=== PATIENT | female | born 1940 | race African-American/Black ===

== ENCOUNTER 2021-11-22 10:39 | Emergency (ER) | payer OTHER, MEDICAID ==
[~2021-11-22] VITALS: Ht 160 cm; Wt 55.0 kg
[~2021-11-22 10:39] MED LIST: ALBU90AE INH; AMBIEN; APIX5TAB MT; ASPI-1406 MT; ATORVASTATIN; BISA-81 MT; CALC1CAP22 MT; CARAFATE; CYAN500T47 MT; FLUT1AER IH; FURO40TA5 MT; LIPITOR; MAGN100T6 MT; MULT-624 MT; PROTONIX; QUET200T PO
[2021-11-22 10:42] VITALS: BP 119/98
[2021-11-22] MEDS ORDERED: ACETAMINOPHEN WITH CODEINE 300/30MG TABLET PO ONE (12:30)
== END 2021-11-22 14:00 | disposition home or self-care (01) ==
LOC: ER 10:39
DX: G89.29 Other chronic pain (principal)
CPT/HCPCS: 99283

== ENCOUNTER 2022-02-16 13:53 | Emergency (ER) | payer OTHER, MEDICAID ==
[~2022-02-16] VITALS: Ht 152.4 cm; Wt 60.0 kg
[2022-02-16] MEDS ORDERED: IBUPROFEN 600MG TABLET PO ONE (19:00)
[2022-02-16] MEDS ORDERED: OXYC-100 MT (19:36)
[2022-02-16] MEDS ORDERED: DOCU-138 MT (19:36)
[2022-02-16] MEDS ORDERED: OXYCODONE HCL/ACETAMINOPHEN 5/325MG TABLET PO ONE (19:45)
[2022-02-16 20:56] VITALS: BP 128/78
== END 2022-02-16 20:50 | disposition home or self-care (01) ==
LOC: ER 13:53
DX: S22.089A Unspecified fracture of T11-T12 vertebra, initial encounter for closed fracture (principal); S32.029A Unspecified fracture of second lumbar vertebra, initial encounter for closed fracture; W18.30XA Fall on same level, unspecified, initial encounter; Y93.89 Activity, other specified; Y92.89 Other specified places as the place of occurrence of the external cause; Y99.8 Other external cause status
CPT/HCPCS: 72100; 72170; 99284

== ENCOUNTER 2022-03-03 14:46 | Inpatient (IN) | payer OTHER, MEDICAID ==
[~2022-03-03] VITALS: Ht 165.1 cm; Wt 55.0 kg
[~2022-03-03 14:46] MED LIST changes: +DOCU-138 MT; +OXYC-100 MT
[2022-03-03 19:12] LABS: BASOPHILS % 0.9 % (0.0-2.0); EOSINOPHILS % 0.6 % (0.0-5.0); HEMATOCRIT. 33.5 % (36.0-48.0); HEMOGLOBIN. 11.2 g/dL (12.0-16.0); LYMPHOCYTES % 28.6 % (20.0-50.0); MEAN CORPUSCULAR HEMOGLOBIN 32.1 pg (28.0-32.0); MEAN CORPUSCULAR VOLUME 96.2 fL (81.0-99.0); MEAN PLATELET VOLUME 7.4 fl (7.4-10.4); MONOCYTES % 5.6 % (2.0-8.0); NEUTROPHILS % 64.3 % (40.0-76.0); PLATELET 390 x1000/uL (130-400); RED BLOOD CELL COUNT 3.48 mill/uL (4.2-5.4); RED CELL DISTRIBUTION WIDTH 15.1 % (11.6-14.6)
[2022-03-03 19:24] LABS: CHLORIDE 110 mEq/L (98-107)
[2022-03-03] MEDS ORDERED: ACETAMINOPHEN 325MG TABLET PO ONE (20:15)
[2022-03-03] MEDS ORDERED: HYDROCODONE/ACETAMINOPHEN 5/325MG TABLET PO ONE (22:15)
[2022-03-03 22:38] LABS: CLARITY URINE TURBID (CLEAR); COLOR URINE YELLOW (YELLOW); KETONES URINE NEGATIVE (NEGATIVE); LEUKOCYTE ESTERASE URINE TRACE (NEGATIVE); NITRITE URINE NEGATIVE (NEGATIVE); OCCULT BLOOD URINE NEGATIVE (NEGATIVE); PH URINE 6.5 (4.5-8.0); PROTEIN URINE 1+ (NEGATIVE); SPECIFIC GRAVITY URINE 1.019 (1.005-1.030)
[2022-03-04] MEDS ORDERED: CEFTRIAXONE 1 G PREMIX 50 ML IV ONE (01:15)
[2022-03-04] MEDS: HYDROCODONE/ACETAMINOPHEN 5/325MG TABLET PO PRN ×3 (04:07→21:35)
[2022-03-04 08:00] VITALS: BP 148/78
[2022-03-04 08:34] VITALS: BP 138/78
[2022-03-04] MEDS: AMLODIPINE 10MG TABLET PO SCH (08:53)
[2022-03-04] MEDS ORDERED: CEFTRIAXONE 1 G PREMIX 50 ML IV SCH (09:00)
[2022-03-04 12:26] VITALS: BP 124/76
[2022-03-04] MEDS ORDERED: IOHEXOL-300 100 ML BOTTLE ONE (14:42)
[2022-03-04 16:00] VITALS: BP 131/79
[2022-03-04 17:27] LABS: *AMPHETAMINES SCREEN URINE NEGATIVE (NEGATIVE); *BARBITURATES SCREEN URINE NEGATIVE (NEGATIVE); *BENZODIAZEPINES SCREEN URINE NEGATIVE (NEGATIVE); *COCAINE SCREEN URINE PRESUMTIVE POSITIVE (NEGATIVE); CANNABINOID URINE SCREEN NEGATIVE (NEGATIVE); METHADONE URINE SCREEN NEGATIVE (NEGATIVE); OPIATES URINE SCREEN PRESUMTIVE POSITIVE (NEGATIVE); PHENCYCLIDINE URINE SCREEN NEGATIVE (NEGATIVE)
[2022-03-04] MEDS ORDERED: NALOXONE HCL 0.4MG/ML VIAL IV PRN (18:30)
[2022-03-04 19:56] VITALS: BP 133/70
[2022-03-05] VITALS: BP 140/72
[2022-03-05] MEDS: CEFTRIAXONE 1,000 MG in DEXTROSE 5% WATER 50 ML IV SCH (02:43)
[2022-03-05 04:00] VITALS: BP 144/72
[2022-03-05 08:00] VITALS: BP 146/80
[2022-03-05] MEDS: AMLODIPINE 10MG TABLET PO SCH (08:49)
[2022-03-05 11:56] LABS: PROTHROMBIN TIME 10.9 sec (9.6-11.0)
[2022-03-05 12:00] VITALS: BP 116/75
[2022-03-05] MEDS: HYDROCODONE/ACETAMINOPHEN 5/325MG TABLET PO PRN ×3 (12:11→22:15)
[2022-03-05 16:00] VITALS: BP 126/69
[2022-03-05 20:00] VITALS: BP 114/66
[2022-03-05] MEDS ORDERED: MORPHINE SULFATE 15MG TABLET SR PO PRN (21:00)
[2022-03-06] VITALS: BP 148/73
[2022-03-06] MEDS: CEFTRIAXONE 1,000 MG in DEXTROSE 5% WATER 50 ML IV SCH (01:30)
[2022-03-06 04:00] VITALS: BP 131/74
[2022-03-06] MEDS: MORPHINE SULFATE 2 MG/ML CPJ (NOT FOR IM USE) IV PRN ×4 (06:18→22:12)
[2022-03-06 08:00] VITALS: BP 136/78
[2022-03-06] MEDS: AMLODIPINE 10MG TABLET PO SCH (09:45)
[2022-03-06 12:00] VITALS: BP 136/74
[2022-03-06 13:03] LABS: BASOPHILS % 0.6 % (0.0-2.0); HEMATOCRIT. 31.9 % (36.0-48.0); HEMOGLOBIN. 10.8 g/dL (12.0-16.0); LYMPHOCYTES % 35.2 % (20.0-50.0); MEAN CORPUSCULAR HEMOGLOBIN 32.3 pg (28.0-32.0); MEAN CORPUSCULAR VOLUME 95.8 fL (81.0-99.0); MEAN PLATELET VOLUME 8.2 fl (7.4-10.4); NEUTROPHILS % 57.2 % (40.0-76.0); PLATELET 311 x1000/uL (130-400); RED BLOOD CELL COUNT 3.33 mill/uL (4.2-5.4); RED CELL DISTRIBUTION WIDTH 14.7 % (11.6-14.6)
[2022-03-06 13:17] LABS: CHLORIDE 104 mEq/L (98-107)
[2022-03-06 16:00] VITALS: BP 126/79
[2022-03-06 20:00] VITALS: BP 140/83
[2022-03-06] MEDS: ZOLPIDEM TARTRATE 5MG TABLET PO PRN (22:11)
[2022-03-07] VITALS (60 sets, daily range): BP systolic 94–149; BP diastolic 48–86
[2022-03-07] MEDS: CEFTRIAXONE 1,000 MG in DEXTROSE 5% WATER 50 ML IV SCH (01:32)
[2022-03-07] MEDS: MORPHINE SULFATE 2 MG/ML CPJ (NOT FOR IM USE) IV PRN (05:40)
[2022-03-07] MEDS ORDERED: THROMBIN (BOVINE) 5000 UNITS/VIAL TOP ONE (06:09)
[2022-03-07] MEDS ORDERED: GENTAMICIN SULF 40MG/ML 2ML VIAL ONE (06:09)
[2022-03-07] MEDS ORDERED: BACITRACIN 15GM TUBE TOP ONE (06:09)
[2022-03-07] MEDS ORDERED: LIDOCAINE HCL 1%/EPI 1:200,000 30 ML VIAL ONE (06:10)
[2022-03-07 06:35] LABS: HEMATOCRIT 30.3 % (36.0-48.0); HEMOGLOBIN 10.5 g/dL (12.0-16.0); MEAN CORPUSCULAR HEMOGLOBIN 32.9 pg (28.0-32.0); MEAN CORPUSCULAR VOLUME 94.8 fL (81.0-99.0); PLATELET 318 x1000/uL (130-400); RED CELL DISTRIBUTION WIDTH 14.6 % (11.6-14.6)
[2022-03-07] MEDS ORDERED: PROPOFOL 200MG/20ML VIAL IV ONE (07:02)
[2022-03-07] MEDS ORDERED: FENTANYL CITRATE/PF 50MCG/ML 2ML VIAL ONE (07:02)
[2022-03-07] MEDS ORDERED: MIDAZOLAM HCL 2 MG/2 ML VIAL ONE (07:02)
[2022-03-07] MEDS ORDERED: ROCURONIUM BROMIDE 10MG/ML VIAL 5ML IV ONE ×2 (07:02→08:21)
[2022-03-07 07:14] LABS: CHLORIDE 105 mEq/L (98-107)
[2022-03-07] MEDS ORDERED: DEXAMETHASONE 4MG/ML 1ML VIAL ONE (08:22)
[2022-03-07] MEDS ORDERED: HYDRALAZINE 20MG/ML VIAL ONE (08:22)
[2022-03-07] MEDS ORDERED: CEFAZOLIN SODIUM 1000MG/VIAL ONE (08:22)
[2022-03-07] MEDS ORDERED: METOCLOPRAMIDE HCL 10MG/2ML VIAL ONE (08:22)
[2022-03-07] MEDS ORDERED: ONDANSETRON HCL 4MG/2ML INJ ONE (08:22)
[2022-03-07] MEDS ORDERED: NEOSTIGMINE METHYLSULFATE 1MG/ML 10 ML VIAL ONE (08:43)
[2022-03-07] MEDS ORDERED: GLYCOPYRROLATE 0.2 MG/ML 2ML VIAL ONE (08:44)
[2022-03-07] MEDS ORDERED: EPHEDRINE SULFATE 50MG/ML VIAL ONE (08:57)
[2022-03-07] MEDS ORDERED: SODIUM CHLORIDE 0.9% 10ML VIAL ONE (08:58)
[2022-03-07] MEDS ORDERED: PHENYLEPHRINE HCL 10 MG/ML 1ML (IV VIAL) IV ONE (08:58)
[2022-03-07] MEDS ORDERED: HYDROCODONE/ACETAMINOPHEN 5/325MG TABLET PO PRN (09:00)
[2022-03-07] MEDS: AMLODIPINE 10MG TABLET PO SCH (09:00)
[2022-03-07] MEDS ORDERED: NICARDIPINE 100 MG in SODIUM CHLORIDE 0.9% 60 ML IV PRN (09:00)
[2022-03-07] MEDS ORDERED: KETOROLAC 30MG/ML VIAL ONE (09:02)
[2022-03-07] MEDS ORDERED: LABETALOL HCL 5MG/ML VIAL 20ML IV ONE (09:14)
[2022-03-07] MEDS: DEXT 5%/LACTATED RINGERS 1,000 ML IV SCH ×2 (10:36→17:40)
[2022-03-07] MEDS: MORPHINE SULFATE 4 MG/ML CPJ (NOT FOR IM USE) IV PRN ×3 (13:08→19:56)
[2022-03-07] MEDS ORDERED: CEFAZOLIN SODIUM 1000MG/VIAL IV SCH (14:00)
[2022-03-07] MEDS: CEFAZOLIN 1000MG PREMIX 50 ML IV SCH ×2 (14:21→23:00)
[2022-03-07] MEDS: ZOLPIDEM TARTRATE 5MG TABLET PO PRN (19:55)
[2022-03-08] VITALS (67 sets, daily range): BP systolic 52–141; BP diastolic 15–85
[2022-03-08] MEDS: MORPHINE SULFATE 4 MG/ML CPJ (NOT FOR IM USE) IV PRN ×5 (00:57→17:09)
[2022-03-08] MEDS: DEXT 5%/LACTATED RINGERS 1,000 ML IV SCH ×2 (00:57→07:39)
[2022-03-08] MEDS: CEFTRIAXONE 1,000 MG in DEXTROSE 5% WATER 50 ML IV SCH (01:00)
[2022-03-08] MEDS: CEFAZOLIN 1000MG PREMIX 50 ML IV SCH ×3 (05:46→22:40)
[2022-03-08] MEDS: AMLODIPINE 10MG TABLET PO SCH (08:04)
[2022-03-08] MEDS ORDERED: GADOTERATE MEGLUMINE 5 MMOL/10 ML VIAL IV ONE (10:07)
[2022-03-08 13:11] LABS: KAPPA/LAMBDA RATIO 42.35 (0.26-1.65); LAMBDA LT CHAINS FREE SERUM 7.9 mg/L (5.7-26.3)
[2022-03-08 13:11] LABS: A/G RATIO 0.6 (0.7-1.7); ALBUMIN 3.3 g/dL (2.9-4.4); ALPHA-1-GLOBULIN 0.3 g/dL (0.0-0.4); ALPHA-2-GLOBULIN 0.8 g/dL (0.4-1.0); BETA GLOBULIN 0.7 g/dL (0.7-1.3); GAMMA GLOBULINS 3.3 g/dL (0.4-1.8); GLOBULIN TOTAL 5.2 g/dL (2.2-3.9); M-SPIKE 2.9 g/dL (Not Observed); TOTAL PROTEIN SERUM 8.5 g/dL (6.0-8.5)
[2022-03-08] MEDS: ZOLPIDEM TARTRATE 5MG TABLET PO PRN (21:10)
[2022-03-09] VITALS: BP 137/88
[2022-03-09] MEDS: CEFTRIAXONE 1,000 MG in DEXTROSE 5% WATER 50 ML IV SCH (01:25)
[2022-03-09] MEDS: MORPHINE SULFATE 4 MG/ML CPJ (NOT FOR IM USE) IV PRN ×3 (01:59→17:15)
[2022-03-09 04:00] VITALS: BP 130/77
[2022-03-09] MEDS: CEFAZOLIN 1000MG PREMIX 50 ML IV SCH (06:35)
[2022-03-09 08:00] VITALS: BP 119/71
[2022-03-09] MEDS: AMLODIPINE 10MG TABLET PO SCH (09:15)
[2022-03-09 12:00] VITALS: BP 122/74
[2022-03-09 16:00] VITALS: BP 125/70
[2022-03-09 17:12] LABS: BASOPHILS % 0.4 % (0.0-2.0); EOSINOPHILS % 0.4 % (0.0-5.0); HEMATOCRIT. 24.6 % (36.0-48.0); HEMOGLOBIN. 8.4 g/dL (12.0-16.0); LYMPHOCYTES % 25.2 % (20.0-50.0); MEAN CORPUSCULAR HEMOGLOBIN 33.1 pg (28.0-32.0); MEAN CORPUSCULAR VOLUME 97.1 fL (81.0-99.0); MONOCYTES % 5.8 % (2.0-8.0); NEUTROPHILS % 68.2 % (40.0-76.0); PLATELET 246 x1000/uL (130-400); RED BLOOD CELL COUNT 2.53 mill/uL (4.2-5.4); RED CELL DISTRIBUTION WIDTH 14.9 % (11.6-14.6)
[2022-03-09 17:20] LABS: CHLORIDE 101 mEq/L (98-107)
[2022-03-09 19:55] VITALS: BP 139/52
[2022-03-10] VITALS (7 sets, daily range): BP systolic 91–116; BP diastolic 47–68
[2022-03-10] MEDS: MORPHINE SULFATE 4 MG/ML CPJ (NOT FOR IM USE) IV PRN ×3 (02:06→20:33)
[2022-03-10] MEDS: AMLODIPINE 10MG TABLET PO SCH (08:20)
[2022-03-10] MEDS ORDERED: NALOXONE HCL 0.4MG/ML VIAL IV PRN (13:00)
[2022-03-10 13:10] LABS: HEMATOCRIT 23.8 % (36.0-48.0); HEMOGLOBIN 8.1 g/dL (12.0-16.0)
[2022-03-10] MEDS: ZOLPIDEM TARTRATE 5MG TABLET PO PRN (21:48)
[2022-03-11 04:00] VITALS: BP 98/64
[2022-03-11] MEDS: MORPHINE SULFATE 4 MG/ML CPJ (NOT FOR IM USE) IV PRN ×2 (07:23→12:27)
[2022-03-11 08:00] VITALS: BP 97/83
[2022-03-11] MEDS ORDERED: LACTULOSE 20G/30ML UDC PO NR (11:45)
[2022-03-11 12:00] VITALS: BP 122/71
[2022-03-11 17:56] VITALS: BP 122/71
== END 2022-03-11 19:35 | disposition home health service (06) | DRG 28 ==
LOC: ER 14:46 → 6EST 03-04 01:12 → MICUNO 03-07 10:09 → 4WST 03-08 16:58
PROVIDERS: ADMIT Internal Medicine; ATTEND Internal Medicine
PROC: 0SG1071 Fusion of 2 or more Lumbar Vertebral Joints with Autologous Tissue Substitute, Posterior Approach, Posterior Column, Open Approach (ICD-10-PCS; principal; 2022-03-07)
PROC: 00NY0ZZ Release Lumbar Spinal Cord, Open Approach (ICD-10-PCS; 2022-03-07)
PROC: 00BY0ZZ Excision of Lumbar Spinal Cord, Open Approach (ICD-10-PCS; 2022-03-07)
DX: C79.49 Secondary malignant neoplasm of other parts of nervous system (principal); I50.31 Acute diastolic (congestive) heart failure; G82.20 Paraplegia, unspecified; M84.48XA Pathological fracture, other site, initial encounter for fracture; M48.061 Spinal stenosis, lumbar region without neurogenic claudication; J44.9 Chronic obstructive pulmonary disease, unspecified; Z20.822 Contact with and (suspected) exposure to COVID-19; M19.90 Unspecified osteoarthritis, unspecified site; I48.91 Unspecified atrial fibrillation; I27.20 Pulmonary hypertension, unspecified; I11.0 Hypertensive heart disease with heart failure; M81.0 Age-related osteoporosis without current pathological fracture; I25.10 Atherosclerotic heart disease of native coronary artery without angina pectoris; F17.210 Nicotine dependence, cigarettes, uncomplicated; F12.10 Cannabis abuse, uncomplicated; F14.10 Cocaine abuse, uncomplicated; Z90.710 Acquired absence of both cervix and uterus; Z79.899 Other long term (current) drug therapy; Z79.01 Long term (current) use of anticoagulants; Z90.49 Acquired absence of other specified parts of digestive tract; C80.1 Malignant (primary) neoplasm, unspecified
CPT/HCPCS: 36415; 71045; 71260; 72100; 72148; 72158; 74177; 76000; 80048; 80053; 80305; 81003; 82784; 83880; 83883; 84155; 84165; 84484; 85014; 85018; 85025; 85027; 86334; 86850; 86900; 87426; 87804; 88305; 88331; 92610; 93005; 93306; 95863; 95925; 95926; 95928; 95929; 97110; 97116; 97162; 97164; 97166; 97530; 97535; 99285; A9577; C9803; J0360; J0690; J0696; J1100; J1580; J1885; J2250; J2270; J2370; J2405; J2704; J2710; J2765; J3010; J3490; J7060; J7121; Q9967; C1713; C1762

== ENCOUNTER 2022-08-04 14:12 | Emergency (ER) | payer OTHER, MEDICAID ==
[~2022-08-04] VITALS: Ht 157.5 cm; Wt 55.0 kg
[2022-08-04 14:14] VITALS: BP 120/72
[2022-08-04] MEDS ORDERED: ACETAMINOPHEN 325MG TABLET PO ONE (15:15)
[2022-08-04] MEDS ORDERED: IBUPROFEN 400MG TABLET PO ONE (15:15)
[2022-08-04] MEDS ORDERED: IBUP-2028 MT (16:21)
== END 2022-08-04 16:30 | disposition home or self-care (01) ==
LOC: ER 14:12
DX: M54.6 Pain in thoracic spine (principal); I10 Essential (primary) hypertension; Z79.899 Other long term (current) drug therapy; Z79.82 Long term (current) use of aspirin
CPT/HCPCS: 71101; 99283

== ENCOUNTER 2023-06-17 21:18 | Emergency (ER) | payer MEDICARE, MEDICAID ==
[~2023-06-17] VITALS: Ht 157.5 cm; Wt 45.0 kg
[~2023-06-17 21:18] MED LIST changes: -ALBU90AE INH; -AMBIEN; -ASPI-1406 MT; -ATORVASTATIN; -BISA-81 MT; -CARAFATE; -DOCU-138 MT; -FLUT1AER IH; -FURO40TA5 MT; +IBUP-2028 MT; -LIPITOR; -MAGN100T6 MT; -OXYC-100 MT; -PROTONIX; -QUET200T PO
[2023-06-17 21:36] VITALS: O2SAT 96
[2023-06-17 22:12] LABS: BASOPHILS % 0.5 % (0.0-2.0); EOSINOPHILS % 0.4 % (0.0-5.0); HEMATOCRIT. 25.6 % (36.0-48.0); HEMOGLOBIN. 8.2 g/dL (12.0-16.0); LYMPHOCYTES % 40.9 % (20.0-50.0); MEAN CORPUSCULAR HGB CONC 32.2 g/dL (31.0-37.0); MEAN CORPUSCULAR VOLUME 99.4 fL (81.0-99.0); MEAN PLATELET VOLUME 7.5 fl (7.4-10.4); MONOCYTES % 5.2 % (2.0-8.0); PLATELET 306 x1000/uL (130-400); RED BLOOD CELL COUNT 2.57 mill/uL (4.2-5.4); RED CELL DISTRIBUTION WIDTH 17.3 % (11.6-14.6); WHITE BLOOD COUNT 2.7 x1000/uL (4.5-11.0)
[2023-06-17 22:19] LABS: CARBON DIOXIDE 25 mEq/L (21-32); CHLORIDE 103 mEq/L (98-107); POTASSIUM 4.4 mEq/L (3.5-5.1); SODIUM 129 mEq/L (136-145)
[2023-06-17 22:20] LABS: CALCIUM 8.3 mg/dL (8.7-10.4)
[2023-06-17 22:24] LABS: CREATININE 0.8 mg/dL (0.6-1.0); GLUCOSE 79 mg/dL (70-105)
[2023-06-17] MEDS: LACTULOSE 20G/30ML UDC PO ONE (22:24)
[2023-06-17 22:25] LABS: UREA NITROGEN BLOOD 18 mg/dL (9-23)
[2023-06-17 22:26] LABS: ALANINE AMINOTRANSFERASE 13 IU/L (10-49); ALBUMIN 2.8 g/dL (3.2-4.8); ASPARTATE AMINOTRANSFERASE 26 IU/L (<34)
[2023-06-17 22:27] LABS: BILIRUBIN TOTAL < 0.2 mg/dL (0.1-1.0)
[2023-06-17 22:29] LABS: PROTEIN TOTAL > 12.0 g/dL (6.0-8.3)
[2023-06-17] MEDS ORDERED: MOM MT (23:09)
[2023-06-17] MEDS ORDERED: NA P230E RC (23:09)
[2023-06-17] MEDS ORDERED: POLY119P2 MT (23:09)
[2023-06-18 01:30] VITALS: BP 110/70; PULSE 72; RESP 12; TEMP 98.8
== END 2023-06-18 01:49 | disposition home or self-care (01) ==
LOC: ER 21:18
DX: K59.00 Constipation, unspecified (principal); E78.00 Pure hypercholesterolemia, unspecified; I10 Essential (primary) hypertension; Z85.9 Personal history of malignant neoplasm, unspecified; Z79.899 Other long term (current) drug therapy; Z90.710 Acquired absence of both cervix and uterus
CPT/HCPCS: 36415; 74176; 80053; 85025; 99284

== ENCOUNTER 2023-07-11 00:34 | Inpatient (IN) | payer MEDICARE, MEDICAID ==
[~2023-07-11] VITALS: Ht 152.4 cm; Wt 49.9 kg
[~2023-07-11 00:34] MED LIST changes: +MOM MT; +NA P230E RC; +POLY119P2 MT
[2023-07-11 00:39] VITALS: O2SAT 97
[2023-07-11] MEDS: SODIUM CHLORIDE 0.9% 1,000 ML IV ONE (01:15)
[2023-07-11] MEDS: MORPHINE SULFATE 4 MG/ML INJ (FOR IV/IM USE) IV STA (02:36)
[2023-07-11] MEDS: ONDANSETRON HCL 4MG/2ML INJ IV STA (02:36)
[2023-07-11 02:44] LABS: BASOPHILS % 0.3 % (0.0-2.0); DIFFERENTIAL COMMENT 0; EOSINOPHILS % 0.4 % (0.0-5.0); LYMPHOCYTES % 29.1 % (20.0-50.0); MEAN CORPUSCULAR HGB CONC 33.8 g/dL (31.0-37.0); MEAN CORPUSCULAR VOLUME 97.6 fL (81.0-99.0); MEAN PLATELET VOLUME 6.7 fl (7.4-10.4); MONOCYTES % 5.5 % (2.0-8.0); NEUTROPHILS % 64.7 % (40.0-76.0); PLATELET 335 x1000/uL (130-400); RED CELL DISTRIBUTION WIDTH 16.9 % (11.6-14.6); WHITE BLOOD COUNT 3.9 x1000/uL (4.5-11.0)
[2023-07-11 03:02] LABS: CHLORIDE 103 mEq/L (98-107); POTASSIUM 2.9 mEq/L (3.5-5.1); SODIUM 131 mEq/L (136-145)
[2023-07-11 03:03] LABS: CALCIUM 8.8 mg/dL (8.7-10.4); CARBON DIOXIDE 26 mEq/L (21-32); HEMATOCRIT. 17.6 % (36.0-48.0); HEMOGLOBIN. 5.9 g/dL (12.0-16.0)
[2023-07-11 03:08] LABS: CREATININE 0.9 mg/dL (0.6-1.0); GLUCOSE 90 mg/dL (70-105); UREA NITROGEN BLOOD 20 mg/dL (9-23)
[2023-07-11 03:09] LABS: TROPONIN I HIGH SENSITIVITY 7 ng/L (3.0-34)
[2023-07-11 03:10] LABS: CREATINE KINASE 37 IU/L (34-145)
[2023-07-11] MEDS ORDERED: POTASSIUM CHLORIDE 40 MEQ in DEXT 5% WATER 230 ML IV ONE (07:15)
[2023-07-11] MEDS: POTASSIUM CHLORIDE 20MEQ TABLET SR PO NR (08:43)
[2023-07-11] MEDS: KCL 20MEQ/100ML X 2 FOR TOTAL KCL 40MEQ/200ML IV SCH (08:57)
[2023-07-11] MEDS ORDERED: IPRATROPIUM/ALBUTEROL 0.5-3(2.5)MG/3ML NEB HHN PRN (09:15)
[2023-07-11] MEDS ORDERED: ONDANSETRON HCL 4MG/2ML INJ IV PRN (09:15)
[2023-07-11 10:15] LABS: HEMOGLOBIN 7.4 g/dL (12.0-16.0)
[2023-07-11] MEDS: SODIUM CHLORIDE 0.9% 1,000 ML IV SCH (10:33)
[2023-07-11 10:37] LABS: D-DIMER 0.9 mg/L FEU (<0.50)
[2023-07-11] MEDS: PANTOPRAZOLE SODIUM 40 MG/VIAL IV SCH (11:14)
[2023-07-11 11:24] LABS: CLARITY URINE CLEAR (CLEAR); COLOR URINE YELLOW (YELLOW); GLUCOSE URINE NEGATIVE (NEGATIVE); KETONES URINE NEGATIVE (NEGATIVE); LEUKOCYTE ESTERASE URINE NEGATIVE (NEGATIVE); NITRITE URINE NEGATIVE (NEGATIVE); OCCULT BLOOD URINE NEGATIVE (NEGATIVE); PH URINE 6.5 (4.5-8.0); PROTEIN URINE 1+ (NEGATIVE); SPECIFIC GRAVITY URINE 1.016 (1.005-1.030); UROBILINOGEN URINE 0.2 E.U./dL (0.2-1.0)
[2023-07-11 11:42] LABS: RBC URINE 0-2 /hpf (0-2); WBC URINE 0-2 /hpf (0-2)
[2023-07-11 11:43] LABS: SQUAMOUS EPITHELIAL CELL URINE NONE SEEN /lpf (RARE/1+); YEAST URINE NONE SEEN
[2023-07-11 11:44] LABS: BACTERIA URINE NONE SEEN
[2023-07-11] MEDS ORDERED: POTASSIUM CHLORIDE 20 MEQ in DEXT 5% WATER 90 ML IV ONE (15:15)
[2023-07-11 16:41] LABS: TROPONIN I HIGH SENSITIVITY 11 ng/L (3.0-34)
[2023-07-11 16:42] LABS: CREATINE KINASE 35 IU/L (34-145)
[2023-07-11 16:59] LABS: BASOPHILS % 0.2 % (0.0-2.0); EOSINOPHILS % 0.1 % (0.0-5.0); HEMATOCRIT. 26.7 % (36.0-48.0); LYMPHOCYTES % 19.6 % (20.0-50.0); MEAN CORPUSCULAR HGB CONC 33.8 g/dL (31.0-37.0); MEAN CORPUSCULAR VOLUME 97.8 fL (81.0-99.0); MEAN PLATELET VOLUME 7.2 fl (7.4-10.4); MONOCYTES % 4.7 % (2.0-8.0); NEUTROPHILS % 75.4 % (40.0-76.0); PLATELET 323 x1000/uL (130-400); RED BLOOD CELL COUNT 2.73 mill/uL (4.2-5.4); RED CELL DISTRIBUTION WIDTH 18.9 % (11.6-14.6); WHITE BLOOD COUNT 5.4 x1000/uL (4.5-11.0)
[2023-07-11] MEDS ORDERED: KCL 20MEQ/100ML PREMIX 100 ML IV NR (17:00)
[2023-07-11] MEDS ORDERED: PANTOPRAZOLE SODIUM 40 MG/VIAL IV SCH (17:15)
[2023-07-11 20:00] VITALS: BP 144/73; PULSE 61; RESP 20; TEMP 97.6
[2023-07-11] MEDS: MAGNESIUM 4 G PREMIX 100 ML IV NR (22:00)
[2023-07-11] MEDS: ACETAMINOPHEN 325MG TABLET PO PRN (23:01)
[2023-07-12] VITALS (7 sets, daily range): BP systolic 123–155; BP diastolic 61–88; PULSE 56–69; RESP 16–19; TEMP 97–98.7
[2023-07-12 07:39] LABS: CARBON DIOXIDE 21 mEq/L (21-32); CHLORIDE 110 mEq/L (98-107); POTASSIUM 3.7 mEq/L (3.5-5.1); SODIUM 135 mEq/L (136-145)
[2023-07-12 07:40] LABS: CALCIUM 8.1 mg/dL (8.7-10.4)
[2023-07-12 07:45] LABS: CREATININE 0.6 mg/dL (0.6-1.0); GLUCOSE 74 mg/dL (70-105); T4 FREE 0.82 ng/dL (0.89-1.76); THYROID STIMULATING HORMONE 3.62 uIU/mL (0.55-4.78); TRIGLYCERIDE 73 mg/dL (0-150)
[2023-07-12 07:46] LABS: LDL CHOLESTEROL 19 mg/dL (5-100); UREA NITROGEN BLOOD 8 mg/dL (9-23)
[2023-07-12 07:47] LABS: CHOLESTEROL 65 mg/dL (<200); HDL CHOLESTEROL 32 mg/dL (>65)
[2023-07-12 07:53] LABS: BASOPHILS % 0.4 % (0.0-2.0); EOSINOPHILS % 0.5 % (0.0-5.0); HEMATOCRIT. 22.6 % (36.0-48.0); HEMOGLOBIN. 7.7 g/dL (12.0-16.0); LYMPHOCYTES % 24.4 % (20.0-50.0); MEAN CORPUSCULAR HEMOGLOBIN 32.4 pg (28.0-32.0); MEAN CORPUSCULAR VOLUME 95.2 fL (81.0-99.0); MEAN PLATELET VOLUME 7.3 fl (7.4-10.4); MONOCYTES % 4.8 % (2.0-8.0); NEUTROPHILS % 69.9 % (40.0-76.0); PLATELET 289 x1000/uL (130-400); RED BLOOD CELL COUNT 2.37 mill/uL (4.2-5.4); WHITE BLOOD COUNT 4.2 x1000/uL (4.5-11.0)
[2023-07-12] MEDS ORDERED: NALOXONE HCL 0.4MG/ML VIAL IV PRN (21:15)
[2023-07-12] MEDS: TRAMADOL 50MG TABLET PO SCH (21:35)
[2023-07-12] MEDS: PANTOPRAZOLE SODIUM 40 MG/VIAL IV SCH (21:35)
[2023-07-13] VITALS: BP 159/76; PULSE 69; TEMP 98.7
[2023-07-13 04:00] VITALS: BP 161/73; TEMP 97.8
[2023-07-13 06:51] LABS: BASOPHILS % 0.4 % (0.0-2.0); EOSINOPHILS % 0.4 % (0.0-5.0); HEMATOCRIT. 24.4 % (36.0-48.0); HEMOGLOBIN. 8.3 g/dL (12.0-16.0); LYMPHOCYTES % 28.6 % (20.0-50.0); MEAN CORPUSCULAR HEMOGLOBIN 32.9 pg (28.0-32.0); MEAN CORPUSCULAR VOLUME 96.7 fL (81.0-99.0); MEAN PLATELET VOLUME 7.3 fl (7.4-10.4); MONOCYTES % 3.4 % (2.0-8.0); NEUTROPHILS % 67.2 % (40.0-76.0); PLATELET 295 x1000/uL (130-400); RED BLOOD CELL COUNT 2.52 mill/uL (4.2-5.4); RED CELL DISTRIBUTION WIDTH 17.4 % (11.6-14.6); WHITE BLOOD COUNT 4.1 x1000/uL (4.5-11.0)
[2023-07-13 07:11] LABS: CARBON DIOXIDE 21 mEq/L (21-32); CHLORIDE 108 mEq/L (98-107); POTASSIUM 4.3 mEq/L (3.5-5.1); SODIUM 131 mEq/L (136-145)
[2023-07-13 07:12] LABS: CALCIUM 8.7 mg/dL (8.7-10.4)
[2023-07-13 07:14] LABS: PROTHROMBIN TIME 11.4 sec (9.6-11.0)
[2023-07-13 07:16] LABS: IRON 25 ug/dL (50-170)
[2023-07-13 07:17] LABS: CREATININE 0.6 mg/dL (0.6-1.0); GLUCOSE 79 mg/dL (70-105); UREA NITROGEN BLOOD 9 mg/dL (9-23)
[2023-07-13 07:19] LABS: TOTAL IRON BINDING CAPACITY 165 ug/dl (250-425)
[2023-07-13 07:20] LABS: FOLIC ACID (FOLATE) SERUM 4.67 ng/mL (>5.38); VITAMIN B12 SERUM 674 pg/mL (211-911)
[2023-07-13 07:22] LABS: FERRITIN 21 ng/mL (10-291)
[2023-07-13 08:00] VITALS: BP 147/82; PULSE 42; RESP 17; TEMP 97.1
[2023-07-13] MEDS: FOLIC ACID/VITAMIN B COMP W-C TABLET PO SCH (09:42)
[2023-07-13] MEDS: IRON SUCROSE COMPLEX 100 MG/5 ML ML IV SCH (10:29)
[2023-07-13 12:00] VITALS: BP 138/60; PULSE 60; RESP 18; TEMP 97.9
[2023-07-13 16:00] VITALS: BP 140/65; PULSE 62; RESP 16; TEMP 97.6
[2023-07-13] MEDS: KETOROLAC 30MG/ML VIAL IV PRN (16:08)
[2023-07-13 20:00] VITALS: BP 140/73; PULSE 70; RESP 19; TEMP 98.1
[2023-07-14] VITALS: BP 155/74; PULSE 66; RESP 18; TEMP 99.3
[2023-07-14 04:00] VITALS: BP 162/75; PULSE 62; RESP 18; TEMP 99.7
[2023-07-14 07:26] LABS: BASOPHILS % 0.6 % (0.0-2.0); EOSINOPHILS % 0.5 % (0.0-5.0); HEMATOCRIT. 22.7 % (36.0-48.0); HEMOGLOBIN. 7.8 g/dL (12.0-16.0); LYMPHOCYTES % 30.8 % (20.0-50.0); MEAN CORPUSCULAR HEMOGLOBIN 32.8 pg (28.0-32.0); MEAN CORPUSCULAR HGB CONC 34.4 g/dL (31.0-37.0); MEAN CORPUSCULAR VOLUME 95.3 fL (81.0-99.0); MEAN PLATELET VOLUME 7.3 fl (7.4-10.4); MONOCYTES % 5.1 % (2.0-8.0); PLATELET 287 x1000/uL (130-400); RED BLOOD CELL COUNT 2.38 mill/uL (4.2-5.4); RED CELL DISTRIBUTION WIDTH 16.6 % (11.6-14.6); WHITE BLOOD COUNT 3.6 x1000/uL (4.5-11.0)
[2023-07-14 07:32] LABS: PROTHROMBIN TIME 11.6 sec (9.6-11.0)
[2023-07-14 08:00] VITALS: BP 126/68; PULSE 65; RESP 17; TEMP 97.9
[2023-07-14 08:01] LABS: CARBON DIOXIDE 25 mEq/L (21-32)
[2023-07-14 08:02] LABS: CALCIUM 8.9 mg/dL (8.7-10.4)
[2023-07-14 08:07] LABS: CREATININE 0.7 mg/dL (0.6-1.0); GLUCOSE 75 mg/dL (70-105); UREA NITROGEN BLOOD 11 mg/dL (9-23)
[2023-07-14 09:01] LABS: CHLORIDE 107 mEq/L (98-107); SODIUM 133 mEq/L (136-145)
[2023-07-14] MEDS ORDERED: PROPOFOL 200MG/20ML VIAL IV ONE (12:42)
[2023-07-14] MEDS ORDERED: DEXAMETHASONE 4MG/ML 1ML VIAL ONE (12:43)
[2023-07-14] MEDS ORDERED: ONDANSETRON HCL 4MG/2ML INJ ONE (12:43)
[2023-07-14] MEDS ORDERED: SIMETHICONE 40 MG/0.6 ML 15ML ONE (13:08)
[2023-07-14 16:00] VITALS: BP 150/78; PULSE 72; RESP 18; TEMP 97.3
[2023-07-14] MEDS: SUCRALFATE 1G TABLET PO SCH (17:50)
[2023-07-14 20:00] VITALS: BP 140/80; PULSE 68; RESP 18; TEMP 97.8
[2023-07-14] MEDS: PANTOPRAZOLE SODIUM 40 MG/VIAL IV SCH (21:44)
[2023-07-15] VITALS: BP 142/75; PULSE 76; RESP 18; TEMP 97.2
[2023-07-15 04:00] VITALS: BP 134/70; PULSE 61; RESP 18; TEMP 97.8
[2023-07-15 07:07] LABS: BASOPHILS % 0.4 % (0.0-2.0); EOSINOPHILS % 0.2 % (0.0-5.0); HEMATOCRIT. 22.2 % (36.0-48.0); HEMOGLOBIN. 7.5 g/dL (12.0-16.0); LYMPHOCYTES % 29.3 % (20.0-50.0); MEAN CORPUSCULAR HEMOGLOBIN 32.2 pg (28.0-32.0); MEAN CORPUSCULAR HGB CONC 33.6 g/dL (31.0-37.0); MEAN CORPUSCULAR VOLUME 96.1 fL (81.0-99.0); MEAN PLATELET VOLUME 7.7 fl (7.4-10.4); MONOCYTES % 4.5 % (2.0-8.0); NEUTROPHILS % 65.6 % (40.0-76.0); PLATELET 282 x1000/uL (130-400); RED BLOOD CELL COUNT 2.31 mill/uL (4.2-5.4); RED CELL DISTRIBUTION WIDTH 16.8 % (11.6-14.6); WHITE BLOOD COUNT 4.6 x1000/uL (4.5-11.0)
[2023-07-15 07:26] LABS: CARBON DIOXIDE 25 mEq/L (21-32); CHLORIDE 105 mEq/L (98-107); SODIUM 130 mEq/L (136-145)
[2023-07-15 07:28] LABS: CALCIUM 8.6 mg/dL (8.7-10.4)
[2023-07-15 07:33] LABS: CREATININE 0.8 mg/dL (0.6-1.0); GLUCOSE 64 mg/dL (70-105); UREA NITROGEN BLOOD 19 mg/dL (9-23)
[2023-07-15 08:00] VITALS: BP 126/68; PULSE 60; RESP 18; TEMP 97.5
[2023-07-15] MEDS: ERGOCALCIFEROL 50000UNITS CAPSULE PO SCH (09:24)
[2023-07-15 12:00] VITALS: BP 135/79; PULSE 64; RESP 18; TEMP 97.6
[2023-07-15] MEDS ORDERED: PANT40TA51 PO (14:28)
[2023-07-15] MEDS ORDERED: AMOX50SU15 GT (14:28)
[2023-07-15] MEDS ORDERED: SUCR1TAB30 PO (14:28)
[2023-07-15 16:00] VITALS: BP 148/71; PULSE 64; RESP 19; TEMP 97
[2023-07-15 20:00] VITALS: BP 150/70; PULSE 70; RESP 20; TEMP 98.3
[2023-07-16] VITALS: BP 145/70; PULSE 72; RESP 20; TEMP 97.8
[2023-07-16 04:00] VITALS: BP 152/75; PULSE 71; RESP 20; TEMP 97.6
[2023-07-16 06:58] LABS: CHLORIDE 107 mEq/L (98-107); POTASSIUM 4.1 mEq/L (3.5-5.1); SODIUM 132 mEq/L (136-145)
[2023-07-16 06:59] LABS: CARBON DIOXIDE 23 mEq/L (21-32)
[2023-07-16 07:04] LABS: CREATININE 0.8 mg/dL (0.6-1.0); GLUCOSE 76 mg/dL (70-105); UREA NITROGEN BLOOD 16 mg/dL (9-23)
[2023-07-16 07:20] LABS: BASOPHILS % 0.5 % (0.0-2.0); EOSINOPHILS % 0.7 % (0.0-5.0); HEMATOCRIT. 23.1 % (36.0-48.0); HEMOGLOBIN. 7.7 g/dL (12.0-16.0); LYMPHOCYTES % 23.3 % (20.0-50.0); MEAN CORPUSCULAR HGB CONC 33.3 g/dL (31.0-37.0); MEAN CORPUSCULAR VOLUME 96.3 fL (81.0-99.0); MEAN PLATELET VOLUME 7.7 fl (7.4-10.4); MONOCYTES % 4.3 % (2.0-8.0); NEUTROPHILS % 71.2 % (40.0-76.0); PLATELET 265 x1000/uL (130-400); RED CELL DISTRIBUTION WIDTH 16.9 % (11.6-14.6); WHITE BLOOD COUNT 4.3 x1000/uL (4.5-11.0)
[2023-07-16 08:00] VITALS: BP 132/71; PULSE 59; RESP 18; TEMP 98.1
[2023-07-16 12:00] VITALS: BP 144/68; PULSE 91; RESP 15; TEMP 97.8
[2023-07-16 16:00] VITALS: BP 125/50; PULSE 61; RESP 17; TEMP 98.7
== END 2023-07-16 20:00 | disposition hospice, home (50) | DRG 840 ==
LOC: ER 00:56 → 5WST 04:18 → 7EST 18:03
PROVIDERS: ADMIT Internal Medicine; ATTEND Internal Medicine
PROC: 30233N1 Transfusion of Nonautologous Red Blood Cells into Peripheral Vein, Percutaneous Approach (ICD-10-PCS; principal; 2023-07-11)
PROC: 0DB78ZX Excision of Stomach, Pylorus, Via Natural or Artificial Opening Endoscopic, Diagnostic (ICD-10-PCS; 2023-07-14)
DX: C90.00 Multiple myeloma not having achieved remission (principal); K29.01 Acute gastritis with bleeding; K29.81 Duodenitis with bleeding; I48.20 Chronic atrial fibrillation, unspecified; I50.32 Chronic diastolic (congestive) heart failure; C43.9 Malignant melanoma of skin, unspecified; J44.9 Chronic obstructive pulmonary disease, unspecified; E87.6 Hypokalemia; K29.50 Unspecified chronic gastritis without bleeding; E53.8 Deficiency of other specified B group vitamins; Z90.49 Acquired absence of other specified parts of digestive tract; Z51.5 Encounter for palliative care; Z79.01 Long term (current) use of anticoagulants; W19.XXXA Unspecified fall, initial encounter; Y93.89 Activity, other specified; Y92.89 Other specified places as the place of occurrence of the external cause; Y99.8 Other external cause status; D63.8 Anemia in other chronic diseases classified elsewhere
CPT/HCPCS: 36415; 71045; 72170; 73552; 73560; 73590; 80048; 80061; 81003; 82270; 82306; 82550; 82607; 82728; 82746; 83540; 83550; 83605; 83735; 83880; 84100; 84439; 84443; 84484; 85014; 85018; 85025; 85044; 85379; 86850; 86900; 86920; 88305; 88312; 88313; 92610; 93005; 93970; 97162; 97166; 97530; 97535; 99291; C9113; J1100; J1885; J2270; J2405; J2704; J3475; J3480; J7030; P9016